=== PATIENT | female | born 1980 | race Caucasian/White ===

== ENCOUNTER 2022-11-29 08:18 | Outpatient (CLI) | payer BC, SELFPAY | END 2022-11-29 08:19 | disposition home or self-care (01) | LOC: NFLDREF 23:45 | PROVIDERS: Visit Provider Family Medicine | DX: Z01.419 Encounter for gynecological examination (general) (routine) without abnormal findings (principal); R73.9 Hyperglycemia, unspecified; E78.5 Hyperlipidemia, unspecified; E66.9 Obesity, unspecified; Z13.1 Encounter for screening for diabetes mellitus | CPT/HCPCS: 80053; 80061 ==

== ENCOUNTER 2023-04-18 08:59 | Outpatient (CLI) | payer BC, SELFPAY ==
--- NOTE | 2023-04-18 09:15 | CRLHL7_ITS ---
For Patients: As a result of the Century Cures Act, medical imaging exams and procedure reports are released immediately into your electronic medical record. You may view this report before your referring provider. If you have questions, please contact your health care provider. BILATERAL SCREENING MAMMOGRAM WITH COMPUTER-AIDED DETECTION AND TOMOSYNTHESIS TECHNIQUE: CC and MLO views were obtained. These mammographic images have been obtained using full-field digital technique. These mammographic images were interpreted with the benefit of computer-aided detection. Breast Tomosynthesis was used in this interpretation. COMPARISON FILM: Baseline. FINDINGS: There are scattered areas of fibroglandular density IMPRESSION: There is no radiographic evidence for malignancy. ASSESSMENT: BI-RADS Category 1: Negative RECOMMENDATION: Routine screening mammogram in 1 year. A lay language report of this examination will be provided to the patient. Tien Peck M.D. Diagnostic Radiologist [email or web address] OWEN/Dictated by: Tien Peck MD @ 04/23/2023 12:59:00 PM (Electronically Signed)
== END 2023-04-18 09:00 | disposition home or self-care (01) ==
LOC: MAMMO 09:00
PROVIDERS: Visit Provider Family Medicine
DX: Z12.31 Encounter for screening mammogram for malignant neoplasm of breast (principal)
CPT/HCPCS: 77063; 77067

== ENCOUNTER 2024-04-27 17:33 | Outpatient (CLI) | payer BC, SELFPAY ==
[2024-04-27 18:05] LABS: Strep A DNA Probe* NOT DETECTED (Not Detectd)
== END 2024-04-27 17:34 | disposition home or self-care (01) ==
LOC: LKVREF 17:34
DX: J02.9 Acute pharyngitis, unspecified (principal)
CPT/HCPCS: 87651

== ENCOUNTER 2024-12-15 10:07 | Outpatient (CLI) | payer BC, SELFPAY | END 2024-12-15 10:08 | disposition home or self-care (01) | PROVIDERS: PCP Family Medicine; Visit Provider Family Medicine | DX: Z00.00 Encounter for general adult medical examination without abnormal findings (principal); E78.5 Hyperlipidemia, unspecified; R73.9 Hyperglycemia, unspecified | CPT/HCPCS: 80053; 80061 ==